=== PATIENT | male | born 1980 | race African-American/Black ===

== ENCOUNTER 2017-07-25 12:56 | Emergency (ER) | payer OTHER ==
[~2017-07-25] VITALS: Ht 175.3 cm; Wt 75.0 kg
[~2017-07-25 12:56] MED LIST: ABIL5 PO; KEPP500 PO; LEVO500T2 PO; LEVO75TA; PHEN100C4
[2017-07-25] MEDS ORDERED: SODIUM CHLORIDE 0.9% 1,000 ML IV ONE (14:06)
[2017-07-25] MEDS ORDERED: LEVETIRACETAM 500MG PREMIX 100 ML IV ONE (14:15)
[2017-07-25 15:09] LABS: BASOPHILS % 0.5 % (0.0-2.0); EOSINOPHILS % 1.9 % (0.0-5.0); HEMATOCRIT. 47.6 % (42.0-52.0); HEMOGLOBIN. 16.1 g/dL (14.0-18.0); LYMPHOCYTES % 17.3 % (20.0-50.0); MEAN CORPUSCULAR HEMOGLOBIN 30.4 pg (28.0-32.0); MEAN PLATELET VOLUME 7.9 fl (7.4-10.4); MONOCYTES % 5.2 % (2.0-8.0); NEUTROPHILS % 75.1 % (40.0-76.0); PLATELET 256 x1000/uL (130-400); RED BLOOD CELL COUNT 5.29 mill/uL (4.7-6.1); RED CELL DISTRIBUTION WIDTH 15.2 % (11.6-14.6)
[2017-07-25 15:13] LABS: CARBON DIOXIDE 30 mEq/L (21-32); CHLORIDE 106 mEq/L (98-107); ETHANOL BLOOD < 10 mg/dL; PHENOBARBITAL 7.6 ug/mL (15.0-40.0); TROPONIN I < 0.02 ng/mL (0.00-0.04)
[2017-07-25 15:15] LABS: CARBAMAZEPINE < 0.5 ug/mL (4-12); VALPROIC ACID < 3.0 ug/mL (50-100)
[2017-07-25] MEDS ORDERED: PHENYTOIN SODIUM EXTENDED 100MG CAPSULE PO ONE (16:15)
[2017-07-25 17:26] VITALS: BP 113/65
== END 2017-07-25 17:33 | disposition home or self-care (01) ==
LOC: ER 13:03
DX: G40.909 Epilepsy, unspecified, not intractable, without status epilepticus (principal); I44.0 Atrioventricular block, first degree; Z91.19 Patient's noncompliance with other medical treatment and regimen
CPT/HCPCS: 36415; 80053; 80156; 80165; 80184; 80185; 83880; 84443; 84484; 85025; 93005; 96365; 99285; G0482; J1953; J7030